=== PATIENT | female | born 1935 | race African-American/Black ===

== ENCOUNTER 2016-04-02 08:10 | Outpatient (CLI) | payer MEDICARE, OTHER ==
[2016-04-02 09:16] LABS: #Basophils 0.1 thou/uL (0.0-0.2); #Eosinphils 0.3 thou/uL (0.0-0.7); #Monocytes 0.9 thou/uL (0.11-0.59); #Neutrophils 6.7 thou/uL (1.40-6.50); %Basophils 0.6 % (0.0-1.0); %Eosinophils 2.6 % (0.0-10.0); %Lymphocytes 19.9 % (21.0-51.0); Hematocrit 20.8 % (36.0-47.0); Mean Platelet Volume 5.1 fL (7.4-10.4); Red Blood Cell (RBC) Count 2.36 mill/uL (4.20-5.40); White Blood Cell (WBC) Count 9.8 thou/uL (4.8-10.8)
[2016-04-02 09:17] LABS: Anion Gap 11 mmol/L (10-20); BUN (Urea Nitrogen) 39 mg/dL (9.8-20.1); Calc. Creatinine Clearance 0 mL/min (70-130); Carbon Dioxide 26 mmol/L (23-31); Chloride 110 mmol/L (98-107); Estimated GFR-MDRD Greater than 90
== END 2016-04-02 08:11 | disposition home or self-care (01) ==
LOC: NAV LABSP 08:10
PROVIDERS: ATTEND Internal Medicine
DX: L89.154 Pressure ulcer of sacral region, stage 4 (principal); R53.2 Functional quadriplegia
CPT/HCPCS: 36415; 80048; 85025

== ENCOUNTER 2016-04-12 19:51 | Outpatient (CLI) | payer MEDICARE, OTHER ==
[2016-04-12 20:30] LABS: #Basophils 0.1 thou/uL (0.0-0.2); #Eosinphils 0.2 thou/uL (0.0-0.7); #Lymphocytes 1.8 thou/uL (1.20-3.40); #Monocytes 0.9 thou/uL (0.11-0.59); #Neutrophils 7.3 thou/uL (1.40-6.50); %Basophils 0.6 % (0.0-1.0); %Eosinophils 2.1 % (0.0-10.0); %Lymphocytes 17.9 % (21.0-51.0); %Monocytes 8.5 % (0.0-10.0); Mean Platelet Volume 4.8 fL (7.4-10.4); Red Blood Cell (RBC) Count 2.59 mill/uL (4.20-5.40); White Blood Cell (WBC) Count 10.3 thou/uL (4.8-10.8)
[2016-04-12 20:46] LABS: ALT (SGPT) 78 U/L (0-55); AST (SGOT) 77 U/L (5-34); Alkaline Phosphatase 195 U/L (40-150); Anion Gap 11 mmol/L (10-20); BUN (Urea Nitrogen) 43 mg/dL (9.8-20.1); Bilirubin, Total 0.2 mg/dL (0.2-1.2); Calc. Creatinine Clearance 0 mL/min (70-130); Calcium 8.2 mg/dL (7.8-10.44); Carbon Dioxide 27 mmol/L (23-31); Chloride 113 mmol/L (98-107); Estimated GFR-MDRD 78; Globulin 7.2 g/dL (2.4-3.5); Protein, Total 9.1 g/dL (5.8-8.1)
== END 2016-04-12 19:52 | disposition home or self-care (01) ==
LOC: NAV LAB 19:51
PROVIDERS: ATTEND Hospitalist
DX: L89.159 Pressure ulcer of sacral region, unspecified stage (principal)
CPT/HCPCS: 80053; 83605; 85025; 85652; 87070; 87205